=== PATIENT | male | born 1980 | race Caucasian/White ===

== ENCOUNTER 2017-01-06 09:17 | Emergency (ER) | payer OTHER ==
--- NOTE | 2017-01-06 09:39 | EDPHY ---
H & P Stated Complaint: inj l foot hit a chair in basement Time Seen by Provider: 01/06/17 09:39 HPI/ROS: HPI: This is a 36-year-old male presents with Chief Complaint: Left toes injury Location: Left 2nd and 3rd toes Quality: Injury Duration: Yesterday Signs and Symptoms: No bleeding, no radiation, no numbness, no weakness, no tingling, + decreased range of motion, + mild swelling Timing: Sudden Severity: [id number] Context: Patient reports that he was walking barefoot and hit his left foot accidentally on a chair with immediate pain felt in his 2nd and 3rd toes on his left foot. He describes the pain as sharp and severe but is gradually wore off. This morning he woke up and the pain has moved into his mid foot now. He is an avid cycler. He is able to walk on it but with pain in the midfoot and now on the pad of the foot. Denies paresthesias/change of color of toes/ radiation. Modifying Factors: Applied ice and took [id number] ibuprofen Comment: ROS: see HPI Constitutional: No fever, no chills, no weight loss Eyes: No blurred vision Respiratory: No shortness of breath, no cough Cardiovascular: No chest pain Gastrointestinal: No nausea, no vomiting no diarrhea Genitourinary: No dysuria Extremities: No myalgias Neurologic: No weakness, no numbness Skin: No rashes Hematologic: No bruising, no bleeding MEDICAL/SURGICAL/SOCIAL HISTORY: Medical history: Generally healthy Surgical history: Denies Social history: Employed, physically active CONSTITUTIONAL: Pleasant adult white male, awake and alert, no obvious distress HEENT: Atraumatic and normocephalic, PERRL, EOMI. Tympanic membranes clear. Oropharynx clear, no exudate and moist pink mucosa. Airway patent. No lymphadenopathy. No meningismus. Cardiovascular: Normal S1/S2, regular rate, regular rhythm, without murmur rub or gallop. PULMONARY/CHEST: Symmetrical and nontender. Clear to auscultation bilaterally. Good air movement. No accessory muscle usage. ABDOMEN: Soft, nondistended, nontender, no rebound, no guarding, no peritoneal signs, no masses or organomegaly. No CVAT. EXTREMITIES: 2/2 radial pulses, left foot 2nd and 3rd digit mild swelling; joint flexion extension intact. Mild tenderness at the MCP joints inferior to the 2nd digit. Achilles intact. Light touch sensation intact. no deformities, no clubbing, no cyanosis or edema. NEUROLOGICAL: no focal neuro deficits. GCS 15. SKIN: Warm and dry, no erythema. no rash. Good capillary refill. Source: Patient Exam Limitations: No limitations - Personal History Current Tetanus/Diphtheria Vaccine: Yes - Medical/Surgical History Hx Asthma: No Hx Chronic Respiratory Disease: No Hx Diabetes: No Hx Cardiac Disease: No Hx Renal Disease: No Hx Cirrhosis: No Hx Alcoholism: No Hx HIV/AIDS: No Hx Splenectomy or Spleen Trauma: No Other PMH: denies - Social History Smoking Status: Never smoked Constitutional: Initial Vital Signs Temperature (C) 36.6 C 01/06/17 09:23 Heart Rate 71 01/06/17 09:23 Respiratory Rate 17 01/06/17 09:23 Blood Pressure 127/76 H 01/06/17 09:23 O2 Sat (%) 97 01/06/17 09:23 O2 Delivery Mode Room Air Allergies/Adverse Reactions: No Known Allergies Allergy (Unverified 01/06/17 09:22) Home Medications: Medication Instructions Recorded traMADol HCL [Tramadol HCl] 50 mg PO Q4 PRN #10 tablet 01/06/17 Medical Decision Making - Diagnostics Imaging Results: Imaging Impressions Foot X-Ray 01/06/17 09:26 Impression: No evidence for acute osseous abnormality. Mild early degenerative change first metatarsophalangeal joint. Soft tissue swelling lateral to the fifth metatarsal. Procedures: Procedure: Splint placement. Charlee-taped and orthotic shoe was applied by Emergency Room precision agriculture technician. After application of the splint I returned and re-examined the patient. The splint was adequately immobilizing the joint and distal to the splint the patient's circulation and sensation was intact. ED Course/Re-evaluation: X-rays ordered No signs of neurovascular compromise/tenting of skin/compartment syndrome/ extremities and joints examined above and below area of concern and are neurovascularly intact. foot xray reviewed via PACs and shows no fracture/dislocation Charlee-taped, orthotic shoe given Advised NSAIDs, RICE therapy Differential Diagnosis: Differential diagnosis includes but is not limited to fracture, contusion, sprain. Departure - Departure Disposition: Home, Routine, Self-Care Clinical Impression: Sprain of toe, second, left Qualifiers: Encounter type: initial encounter Qualified Code(s): S93.505A - Unspecified sprain of left lesser toe(s), initial encounter Condition: Good Instructions: Foot Sprain (ED) Additional Instructions: Wear the charlee-taped and use orthotic shoe until pain resolved. Take ibuprofen 600-800 mg every 6-8 hours with food as needed for pain and inflammation. Use Tramadol for severe/breakthrough pain. Apply ice for 30 minutes at a time; 2-3 times per day for the next 1-2 days. Follow up with Orthopedics in 7-10 days if no improvement at which time they will evaluate and recommend with you if conservative management versus further diagnostic imaging is indicated. The x-rays obtained in the emergency department today demonstrate no evidence of an obvious fracture. Sometimes fractures are not obvious on the initial set of x-rays performed in the ED. For this reason, you should have repeat x-rays performed in 7-10 days if you are having any pain exclude the possibility of an occult fracture. Referrals: Nya Hudson MD [Medical Doctor] - As per Instructions Prescriptions: traMADol HCL [Tramadol HCl] 50 mg PO Q4 PRN #10 tablet PRN Reason: Pain, Breakthrough
[2017-01-06 10:32] VITALS: BP 122/85; PULSE 65; RESP 18; TEMP 98.6; O2SAT 98
== END 2017-01-06 10:29 | disposition home or self-care (01) ==
DX: S93.505A Unspecified sprain of left lesser toe(s), initial encounter (principal); W22.8XXA Striking against or struck by other objects, initial encounter; Y99.8 Other external cause status; Y93.01 Activity, walking, marching and hiking